=== PATIENT | male | born 1990 | race American Indian/Alaskan Native ===

== ENCOUNTER 2017-10-12 20:37 | Emergency (ER) | payer SELFPAY ==
[2017-10-12] MEDS ORDERED: PEPCID IV ONE (20:54)
[2017-10-12 21:08] VITALS: BP 106/84
[2017-10-12] MEDS ORDERED: TYLENOL PO ONE (21:21)
[2017-10-12] MEDS ORDERED: TORADOL IV ONE (21:21)
[2017-10-12] MEDS ORDERED: ULTRAM PO ONE (21:28)
--- NOTE | 2017-10-12 23:21 | Emergency Department Report ---
HPI - General Chief Complaint: Allergic Reaction Time Seen by Provider: 10/12/17 20:53 ED Past Medical Hx - Social History Smoking Status: Unknown if ever smoked Substance Use Type: None ED Review of Systems ROS: Stated complaint: ALLERGIC REACTION Other details as noted in HPI Physical Exam - Physical Exam Vital Signs: Vital Signs 10/12/17 10/12/17 10/12/17 20:41 20:51 21:03 Temperature 97.6 F Pulse Rate 104 H Pulse Rate [ 104 H 108 H Bilateral] Respiratory Rate Respiratory 18 20 Rate [Bilateral ] Blood Pressure 106/84 O2 Sat by Pulse 22 L Oximetry 10/12/17 21:17 Temperature Pulse Rate Pulse Rate [ Bilateral] Respiratory 18 Rate Respiratory Rate [Bilateral ] Blood Pressure O2 Sat by Pulse Oximetry ED Course Vital Signs 10/12/17 10/12/17 10/12/17 20:41 20:51 21:03 Temperature 97.6 F Pulse Rate 104 H Pulse Rate [ 104 H 108 H Bilateral] Respiratory Rate Respiratory 18 20 Rate [Bilateral ] Blood Pressure 106/84 O2 Sat by Pulse 22 L Oximetry 10/12/17 21:17 Temperature Pulse Rate Pulse Rate [ Bilateral] Respiratory 18 Rate Respiratory Rate [Bilateral ] Blood Pressure O2 Sat by Pulse Oximetry Critical care attestation.: If time is entered above; I have spent that time in minutes in the direct care of this critically ill patient, excluding procedure time. ED Disposition Condition: Stable Referrals: PRIMARY CARE, [Primary Care Provider] - 3-5 Days
--- NOTE | 2017-10-13 00:02 | Emergency Department Report ---
ED General Adult HPI - General Chief complaint: Allergic Reaction Stated complaint: ALLERGIC REACTION Time Seen by Provider: 10/12/17 20:53 Source: EMS, freelance interpreter/translator Mode of arrival: Stretcher Limitations: No Limitations - History of Present Illness Initial comments: Patient was sent by multiple bees or loss earlier today. Afterwards, he developed facial swelling and difficulty breathing. This is that happened to him before. No history of reactions. He isn't been bitten by insects before. EMS was called who gave him 125 mg Solu-Medrol, 50 mg Benadryl, 0.3 mg IM epinephrine, 5 mg albuterol. Severity scale (0 -10): 7 - Related Data Previous Rx's Medication Instructions Recorded Last Taken Type EPINEPHrine [Epipen 2-Samuel] 0.3 mg IJ DAILY PRN #1 [email or web address] 10/12/17 Unknown Rx Allergies Allergy/AdvReac Type Severity Reaction Status Date / Time bee venom protein (honey bee) Allergy Rash Verified 10/12/17 21:10 ED Review of Systems ROS: Stated complaint: ALLERGIC REACTION Other details as noted in HPI Comment: All other systems reviewed and negative ENT: throat pain Respiratory: shortness of breath Skin: rash, pruritus ED Past Medical Hx - Social History Smoking Status: Unknown if ever smoked Substance Use Type: None - Medications Home Medications: Home Medications Medication Instructions Recorded Confirmed Last Taken Type EPINEPHrine [Epipen 2-Samuel] 0.3 mg IJ DAILY PRN #1 [email or web address] 10/12/17 Unknown Rx ED Physical Exam - General Limitations: Language Barrier General appearance: alert, in no apparent distress - Head Head exam: Present: atraumatic, normocephalic - Eye Eye exam: Present: normal appearance, periorbital swelling - ENT ENT exam: Present: normal orophraynx, mucous membranes moist - Neck Neck exam: Present: normal inspection - Respiratory Respiratory exam: Present: normal lung sounds bilaterally. Absent: respiratory distress - Cardiovascular Cardiovascular Exam: Present: regular rate, normal rhythm. Absent: systolic murmur, diastolic murmur, rubs, gallop - GI/Abdominal GI/Abdominal exam: Present: soft, normal bowel sounds. Absent: distended, tenderness, guarding, rebound - Rectal Rectal exam: Present: deferred - Extremities Exam Extremities exam: Present: normal inspection - Back Exam Back exam: Present: normal inspection - Neurological Exam Neurological exam: Present: alert, oriented X3 - Psychiatric Psychiatric exam: Present: normal affect, normal mood - Skin Skin exam: Present: warm, dry, intact, erythema. Absent: rash ED Course Vital Signs 10/12/17 10/12/17 10/12/17 20:41 20:51 21:03 Temperature 97.6 F Pulse Rate 104 H Pulse Rate [ 104 H 108 H Bilateral] Respiratory Rate Respiratory 18 20 Rate [Bilateral ] Blood Pressure 106/84 O2 Sat by Pulse 22 L Oximetry 10/12/17 21:17 Temperature Pulse Rate Pulse Rate [ Bilateral] Respiratory 18 Rate Respiratory Rate [Bilateral ] Blood Pressure O2 Sat by Pulse Oximetry ED Medical Decision Making - Medical Decision Making 27-year-old male with no significant past medical history that presents to the ER with concerns for anaphylaxis. Vital signs are stable. Patient is in mild distress. Oropharynx is unremarkable. Without any signs of distress. Patient states that his whole body hurts. He was given 20 mg IV Pepcid in the ER. I gave him tramadol/Tylenol/Motrin for his pain. The patient was watched in the ER for 3 hours with resolution of symptoms. He has been given 2 EpiPen to go home with. Return precautions have discussed. He is clear for discharge. - Differential Diagnosis urticaria, contact dermatitis, angioedema, ludwigs, anaphylaxis Critical care attestation.: If time is entered above; I have spent that time in minutes in the direct care of this critically ill patient, excluding procedure time. ED Disposition Clinical Impression: Anaphylaxis Disposition: DC-01 TO HOME OR SELFCARE Is pt being admited?: No Does the pt Need Aspirin: No Condition: Stable Instructions: Insect Bite or Sting (ED), Anaphylaxis (ED) Additional Instructions: Please keep an epipen near by just in case you get bite by a bee/wasp again. You can take benadryl 25 mg every 6 hours as needed for itching. Take tylenol and/or motrin as needed for pain relief. Prescriptions: EPINEPHrine [Epipen 2-Samuel] 0.3 mg IJ DAILY PRN #1 [email or web address] PRN Reason: Anaphylaxis Referrals: PRIMARY CARE, [Primary Care Provider] - 3-5 Days [facility] [Outside] - 3-5 Days
== END 2017-10-13 00:34 | disposition home or self-care (01) ==
LOC: ED 20:37
DX: T78.2XXA Anaphylactic shock, unspecified, initial encounter (principal); Z91.030 Bee allergy status; X58.XXXA Exposure to other specified factors, initial encounter; Y93.89 Activity, other specified; Y99.8 Other external cause status; Y92.89 Other specified places as the place of occurrence of the external cause
CPT/HCPCS: 94640; 96374; 96375; 99283; J1885